=== PATIENT | male | born 1995 ===

== ENCOUNTER 2019-02-28 19:37 | Emergency (ER) | payer BC ==
[2019-02-28] MEDS ORDERED: Rabies Vaccine Human 2.5 UNITS VIAL IM ONE (20:30)
[2019-02-28] MEDS ORDERED: Adacel (T-DAP) 0.5 ML SYRINGE ONE (20:37)
[2019-02-28] MEDS ORDERED: HYDROcodone/Acetaminophen 5/325 mg Tablet ONE (21:12)
== END 2019-02-28 21:54 | disposition home or self-care (01) ==
LOC: ERS 19:37
DX: S61.051A Open bite of right thumb without damage to nail, initial encounter (principal); S61.254A Open bite of right ring finger without damage to nail, initial encounter; I10 Essential (primary) hypertension; W54.0XXA Bitten by dog, initial encounter
CPT/HCPCS: 90375; 90471; 90472; 90675; 90715; 96372; 99283